=== PATIENT | female | born 1945 | race Caucasian/White ===

== ENCOUNTER 2021-05-18 01:09 | Outpatient (CLI) | payer MEDICARE, SELFPAY ==
--- NOTE | 2021-05-18 07:30 | DI.US_ITS ---
Exam(s) US SOFT TISSUE EXTREMITY EXAM: US SOFT TISSUE EXTREMITY CLINICAL HISTORY: evaluate GANGLION CYST, M67.431 TECHNIQUE: Ultrasound performed using standard protocol. COMPARISON: No exams were available for comparison FINDINGS: Soft tissue ultrasound was performed to evaluate apparent palpable abnormality of the volar aspect of the wrist. There is a 16 x 14 x 17 millimeter lobulated cystic mass at the area of the palpable abn ormality, the findings are consistent with a ganglion cyst. No additional significant findings. If there is further clinical question regarding the origin of this ganglion cyst, additional evaluati on with MR may be considered. IMPRESSION: DATA REPOSITORY:
== END 2021-05-18 01:29 ==
PROVIDERS: Visit Provider Student in an Organized Health Care Education/Training Program
DX: M67.431 Ganglion, right wrist (principal)
CPT/HCPCS: 76881

== ENCOUNTER 2021-06-01 14:53 | Outpatient (CLI) | payer MEDICARE, SELFPAY ==
--- NOTE | 2021-06-01 14:45 | RT.EKG_ITS ---
APPROVED REPORT Exam: Resting ECG Reason for Exam: preop screening Patient Location: O HR:73 bpm ECG Measurements Heart Rate 73 AXIS NH 220 P 20 QRSd 108 QRS -9 QT 389 T 52 QTc 429 Conclusion Sinus rhythm...normal P axis, V-rate 60- 99 Prolonged NH interval...NH >220, V-rate 50- 90
== END 2021-06-01 14:54 | disposition home or self-care (01) ==
LOC: DI.KIM 14:54
PROVIDERS: Visit Provider Student in an Organized Health Care Education/Training Program
DX: Z01.810 Encounter for preprocedural cardiovascular examination (principal)
CPT/HCPCS: 93010

== ENCOUNTER → 2021-08-13 10:41 | Outpatient (BNVA) | payer MEDICARE, SELFPAY | PROVIDERS: PCP Student in an Organized Health Care Education/Training Program; Referring Provider Student in an Organized Health Care Education/Training Program; Visit Provider Student in an Organized Health Care Education/Training Program | DX: M67.431 Ganglion, right wrist (principal) | CPT/HCPCS: 99203 ==

== ENCOUNTER 2021-08-27 01:42 | Outpatient (CLI) | payer MEDICARE, SELFPAY ==
--- NOTE | 2021-08-27 08:15 | DI.MRI_ITS ---
Exam(s) MR UPPER JOINT RT WO EXAM: MR UPPER JOINT RT WO CLINICAL HISTORY: PAIN, SURGICAL PLANNING,ganglion cystm, m67.431 TECHNIQUE: Multiplanar multisequence MRI of the shoulder was performed. COMPARISON: No exams were available for comparison FINDINGS: MARROW:There is no evidence of fracture nor bone contusion. There is subarticular cyst in the proxim al lunate measuring 4 x 4 millimeters. No surrounding edema. There are also cysts in the distal ayala f of the scaphoid-navicular bone, largest of these measuring 6 x 5 millimeters small cysts noted in t he mid capitate. Hook of the hamate appears intact. ARTICULATIONS: Mild fluid noted within the articulation between the trapezium-trapezoid and distal sc aphoid. TENDONS: There is tenosynovitis of carpal tunnel flexor tendons. There is significant fluid surrounding the flexor carpi radialis tendon, this over a longitudinal schuyler gth of 2 cm and there is outpouching of this tendon sheath volar and laterally. There is no tenosynovitis of dorsal tendons. Also no evidence of de Quervain tenosynovitis. TRIANGULAR FIBROCARTILAGE COMPLEX: There is a tear in the triangular fibrocartilage adjacent to the u lnar styloid. There is fluid in the distal radio ulnar joint. IMPRESSION: 1. There is focal 2 cm length tenosynovitis around the flexor carpi radialis tendon at approximately the level of the radiocarpal joint and there are bulbous outpouchings of the fluid-filled tendon pride th at this level 2. There is also fluid surrounding the carpal tunnel flexor tendons 3. Tearing of the triangle fibrocartilage the medial aspect of the wrist and fluid evident within the distal radioulnar joint. 4. Carpal bone nonexpansile cysts in the scaphoid lunate and capitate bones described above. DATA REPOSITORY:
== END 2021-08-27 02:02 ==
PROVIDERS: PCP Student in an Organized Health Care Education/Training Program; Visit Provider Student in an Organized Health Care Education/Training Program
DX: M67.431 Ganglion, right wrist (principal); M65.831 Other synovitis and tenosynovitis, right forearm; M25.431 Effusion, right wrist; S63.591A Other specified sprain of right wrist, initial encounter; X58.XXXA Exposure to other specified factors, initial encounter
CPT/HCPCS: 73221

== ENCOUNTER 2021-11-12 11:39 | Outpatient (REF) | payer MEDICARE, SELFPAY | END 2021-11-12 11:40 | disposition home or self-care (01) | LOC: LBN 11:39 | PROVIDERS: PCP Student in an Organized Health Care Education/Training Program; Visit Provider Student in an Organized Health Care Education/Training Program | DX: N39.0 Urinary tract infection, site not specified (principal) | CPT/HCPCS: 87077; 87086; 87186 ==